=== PATIENT | female | born 1985 | race African-American/Black ===

== ENCOUNTER 2022-11-06 01:39 | Inpatient (IN) | payer OTHER, SELFPAY ==
[2022-11-06] VITALS (100 sets, daily range): BP systolic 86–148; BP diastolic 34–113; PULSE 35–261; RESP 16–20; TEMP 36.6–37.7; O2SAT 74–100; BMI 33.9
--- NOTE | 2022-11-06 02:19 | LDADM ---
This patient, Beatrice Patton, was admitted to Labor/Delivery/Recovery 107 on 11/06/22 at 01:39. Plans for labor, pain management and were discussed with patient. Patient/family oriented to hospital policies and general routines including ID bracelet, bed and alarms, visiting hours, pain management, procedures, bathroom and other care routines, personal items, smoking policy, room service/diet and guest tray routines, security routines, and visiting hours. Patient/Family are encouraged to report perceived risks to care and to ask questions if they do not understand what they are told or what they should do. See OBIX for further documentation.
[2022-11-06 02:27] LABS: Basophils Percent Auto 0.5 % (0.2-1.2); Eosinophils Absolute Auto 0.1 K/mm3 (0-0.3); Eosinophils Percent Auto 0.8 % (0-4.4); Hemoglobin 11.2 g/dL (12.0-15.0); Immature Granulocyte Absolute 0.03 K/mm3 (0.00-0.031); Immature Granulocyte Percent A 0.5 % (0-0.5); Lymphocytes Absolute Auto 2.31 K/mm3 (0.9-3.2); Lymphocytes Percent Auto 36.4 % (18.3-44.2); Mean Corpuscular HGB Conc 31.1 g/dl (32-36); Mean Corpuscular Hemoglobin 25.1 pg (26-34); Mean Corpuscular Volume 80.5 fl (80-100); Mean Platelet Volume 10.3 fl (7.4-10.4); Monocytes Absolute Auto 0.7 K/mm3 (0.1-0.6); Monocytes Percent Auto 10.2 % (2.6-8.5); Neutrophils Absolute Auto 3.3 K/mm3 (1.3-6.7); Neutrophils Percent Auto 51.6 % (45.5-73.1); Platelet Count Result 232 k/mm3 (150-375); Red Blood Count 4.47 M/mm3 (4.2-5.4); Red Cell Distribution Width 13.9 % (11.5-14.5); White Blood Count 6.4 K/mm3 (4.5-10.0)
[2022-11-06] MEDS: AMPICILLIN 2 GM/NS 100 ML 2 GM/100 ML BAG IVPB (02:33)
[2022-11-06] MEDS: LACTATED RINGERS 1,000 ML 125 ML IV CONT ×2 (02:33→07:04)
[2022-11-06] MEDS: AMPICILLIN 1 GM/NS 50 ML 1 GM/50 ML BAG IVPB ×2 (06:19→11:26)
--- NOTE | 2022-11-06 06:30 | WPDANESEPP ---
Anes - Eval Pre Procedure Procedure: labor epidural Date/Time: 11/06/22 06:30 Pre Op Diagnosis: SROM Patient Data Age: 37 Gender: F Height: 1.65 m Weight: 92.5 kg Last Vital Signs Temp 36.6 C 11/06/22 05:00 Pulse 108 H 11/06/22 03:01 Resp 20 11/06/22 05:00 BP 118/85 11/06/22 03:01 O2 Del Method Room Air 11/06/22 02:17 Allergies Allergy/AdvReac Type Severity Reaction Status Date / Time No Known Allergies Allergy Mild Verified 09/19/09 20:22 Home Medications Medication Instructions Recorded Confirmed Type aspirin 81 mg tablet 81 mg PO DAILY 11/04/22 11/06/22 History prenat.vits,sherri,jvh-mzgk-nlwcu 1 tablet PO DAILY 11/04/22 11/06/22 History Laboratory Tests 11/06/22 11/06/22 11/06/22 02:22 02:22 02:22 WBC 6.4 K/mm3 K/mm3 (4.5-10.0) RBC 4.47 M/mm3 M/mm3 (4.2-5.4) Hgb 11.2 g/dL L g/dL (12.0-15.0) Hct 36.0 % L % (37.0-47.0) MCV 80.5 fl fl (80-100) MCH 25.1 pg L pg (26-34) MCHC 31.1 g/dl L g/dl (32-36) RDW 13.9 % % (11.5-14.5) Plt Count 232 k/mm3 k/mm3 (150-375) MPV 10.3 fl fl (7.4-10.4) Immature Gran % (Auto) 0.5 % % (0-0.5) Neut % (Auto) 51.6 % % (45.5-73.1) Lymph % (Auto) 36.4 % % (18.3-44.2) Nolan % (Auto) 10.2 % H % (2.6-8.5) Eos % (Auto) 0.8 % % (0-4.4) Baso % (Auto) 0.5 % % (0.2-1.2) Lymph # (Auto) 2.31 K/mm3 K/mm3 (0.9-3.2) Nolan # (Auto) 0.7 K/mm3 H K/mm3 (0.1-0.6) Eos # (Auto) 0.1 K/mm3 K/mm3 (0-0.3) Baso # (Auto) 0.0 K/mm3 K/mm3 (0.0-0.1) Abs Immat Gran (auto) 0.03 K/mm3 K/mm3 (0.00-0.031) Absolute Neuts (auto) 3.3 K/mm3 K/mm3 (1.3-6.7) Absolute Nucleated RBC 0.0 K/mm3 K/mm3 (0.0-0.012) Nucleated RBC % 0.0 % % (0.0-0.2) RPR Pending HIV 1&2 Ab/P24 Ag 4thGn Blood Type O Positive Antibody Screen Negative 11/06/22 05:39 WBC RBC Hgb Hct MCV MCH MCHC RDW Plt Count MPV Immature Gran % (Auto) Neut % (Auto) Lymph % (Auto) Nolan % (Auto) Eos % (Auto) Baso % (Auto) Lymph # (Auto) Nolan # (Auto) Eos # (Auto) Baso # (Auto) Abs Immat Gran (auto) Absolute Neuts (auto) Absolute Nucleated RBC Nucleated RBC % RPR HIV 1&2 Ab/P24 Ag 4thGn Pending Blood Type Antibody Screen Patient hx anesthesia problems: none Family hx anesthesia problems: none Results Review: All pre-operative results and documents have been reviewed as part of the pre-operative evaluation. [facility] Past Medical History Medical History (Updated 11/06/22 @ 06:31 by Jolanta Gonzalez CRNA) Anxiety Social History Social History Smoking status: Never smoker Substance use: never Last use: unsure Lack of Transportation: No Lack of Food: Never True Current Housing: I Have Housing Concerned About Future Housing: No Difficulty Paying Gas/Electric Bills: No Difficulty Paying for Meds: No Currently Unemployed: No Education: High School Diploma/GED Difficulty w/ Childcare or Family Care: No Spiritual care concerns: No Exam Day of Procedure 11/06/22 06:30 Patient weight: obese Heart: regular rate and rhythm Lungs: clear to auscultation Airway: Mallampati scale Neurological: alert and oriented
[2022-11-06 06:48] LABS: HIV 1/2 Ab P24 Ag Result Negative (Negative)
--- NOTE | 2022-11-06 08:23 | WPDHPUPDATE1 ---
History and Physical Update Update Date/Time: 11/06/22 08:23 37-year-old multiparous female at term who presented in labor. She has advanced cervical dilation, reassuring heart tones, epidural, expectant management to continue. History and Physical has been reviewed, including an updated exam of the patient. There are NO changes in the patient's condition. Risks, benefits, and alternatives have been discussed and questions answered. Patient agrees to proceed with procedure.
[2022-11-06] MEDS: OXYTOCIN 30 UNITS/NS 500 ML 30 UNITS/500 ML BAG IV CONT (10:25)
[2022-11-06 13:13] LABS: Amphetamine Screen Urine Negative (Negative); Barbiturate Screen Urine Negative (Negative); Benzodiazepines Screen Urine Negative (Negative); Cannabinoid Screen Urine Positive (Negative); Cocaine Screen Urine Negative (Negative); Methadone Screen Urine Negative (Negative); Opiate Screen Urine Negative (Negative); Phencyclidine Screen Urine Negative (Negative)
[2022-11-06] MEDS: WITCH HAZEL 40 PADS 1 PAD TOPICAL (15:47)
--- NOTE | 2022-11-06 16:42 | OBPPTRN ---
1602-Patient transferred to post room #291 via wheelchair. Support person present. Oriented to unit, room, information board, rooming in, admission packet and security measures. Patient verbalizes understanding.
[2022-11-06] MEDS: IBUPROFEN 600 MG TABLET PO (18:53)
[2022-11-06] MEDS: HYDROcodone/acetaminophen (*CRX) 5-325 MG TABLET 1 TAB PO (20:07)
[2022-11-07 04:30] VITALS: BP 110/68; PULSE 72; RESP 16; TEMP 36.4; O2SAT 99
[2022-11-07] MEDS: HYDROcodone/acetaminophen (*CRX) 5-325 MG TABLET 1 TAB PO ×4 (04:44→22:20)
[2022-11-07 05:17] LABS: Hematocrit 31.4 % (37.0-47.0); Hemoglobin 9.8 g/dL (12.0-15.0)
[2022-11-07 07:30] VITALS: BP 106/66; PULSE 70; RESP 16; RESP 18; TEMP 36.6; O2SAT 99
--- NOTE | 2022-11-07 08:31 | PM.OBPNVD ---
OB - PN: Subj Subjective Date/time seen: 11/07/22 08:31 Patient comments: no complaints, pain well controlled, incisional pain, tolerating diet and flatus present OB - PN: Obj Data Labs 11/07/22 04:34 Labs: Laboratory Results - last 24 hr 11/06/22 11/07/22 11:57 04:34 Hgb 9.8 L Hct 31.4 L Urine Opiates Screen Negative Urine Methadone Screen Negative Ur Barbiturates Screen Negative Ur Phencyclidine Scrn Negative Ur Amphetamine Screen Negative U Benzodiazepines Scrn Negative Urine Cocaine Screen Negative U Cannabinoids Screen Positive A OB - PN A/P Plan day: 1 Plan: routine care Comments: No problems, routine care Time Spent With Patient Time: Total time spent is greater than 50% in coordination of care (as documented) at patient's floor/unit and/or counseling patient: Exam Const: General: comfortable, no acute distress and alert Resp: Effort & Inspection: normal respiratory effort Auscultation: no crackles, no rales and no rhonchi Cardio: Rate: regular rate Heart sounds: no click, no murmurs and no rubs GI: Inspection: non-distended GI Palp: No Tenderness to palpation present (GI) Auscultation: normal bowel sounds Other: Incision - CDI Extrem: General: normal to inspection, no pedal edema and no calf tenderness
--- NOTE | 2022-11-07 08:40 | WPDANLDPN2 ---
Anes-Prog Note L&D Date/Time: 11/07/22 08:40 Neuro status: Neuro function grossly intact. Cardiovascular status: normal Respiratory status: normal Airway patency: baseline Mental status: baseline Post-Op hydration status: normal Vital Signs: Last Vital Signs Temp 36.4 C L 11/07/22 04:30 Pulse 72 11/07/22 04:30 Resp 16 11/07/22 04:30 BP 110/68 11/07/22 04:30 Pulse Ox 99 11/07/22 04:30 O2 Del Method Room Air 11/06/22 16:30 Pain score (VAS): 2 I/O: Intake & Output 11/06/22 11/07/22 11/07/22 23:59 07:59 15:59 Intake Total 640 Output Total 200 Balance 440 Post-procedural complaints: none Patient feedback: Patient satisfied with anesthetic care.
[2022-11-07] MEDS: POLYSACCHARIDE IRON COMPLEX 150 MG CAPSULE PO ×2 (09:32→17:04)
[2022-11-07] MEDS: DOCUSATE SODIUM 100 MG CAPSULE PO ×2 (09:32→17:04)
[2022-11-07] MEDS: IBUPROFEN 600 MG TABLET PO ×2 (10:19→17:05)
[2022-11-07 19:10] VITALS: BP 129/73; PULSE 74; RESP 18; TEMP 36.6; O2SAT 99
[2022-11-08] MEDS: HYDROcodone/acetaminophen (*CRX) 5-325 MG TABLET 1 TAB PO (05:22)
[2022-11-08] MEDS: IBUPROFEN 600 MG TABLET PO (05:22)
--- NOTE | 2022-11-08 08:03 | PM.OBPNVD ---
OB - PN: Subj Subjective Date/time seen: 11/08/22 08:03 Patient comments: no complaints and pain well controlled baby status: doing well and bottle feeding well [place] feeding status: exclusively bottle feeding Narrative: ready for DC home. OB - PN: Obj Data Labs 11/07/22 04:34 OB - PN A/P Plan day: 2 Plan: routine care and discharge home Time Spent With Patient Time: Total time spent is greater than 50% in coordination of care (as documented) at patient's floor/unit and/or counseling patient: Time with patient: less than 15 minutes Exam Narrative: NAD abdomen soft, nontender, fundus firm below the umbilicus Extremities nontender, 1+ edema
--- NOTE | 2022-11-08 08:05 | P.DS_ITS ---
DS: Admitting Diagnosis Discharge Date 11/08/22 Admitting Diagnosis term labor DS: Discharge Diagnosis Discharge Diagnosis (1) , delivered: Code(s): O80 - Encounter for full-term uncomplicated delivery Status: Acute OB - DS: Summary Hospital Course Hospital Course: Beatrice was admitted for labor at term. She proceeded to have an uncomplicated vaginal delivery and course. She was discharged home on PPD 2. OB Procedures : Ultrasound OB Procedures Intrapartum: Spontaneous Vag Delivery OB Procedures: : None Peripartum Data Delivery Method: Natural Vaginal complications: none Status at Discharge Functional status at discharge: independent ambulation Time Spent with Patient Time attestation: Total time spent providing and/or coordinating discharge services: Exam Narrative: NAD abdomen soft, appropriately tender Ext non tender, 1+ edema Discharge Plan Discharge Attending physician on discharge: Elmira Farrar Discharging Clinician: Elmira Farrar Anticipated Discharge Date/Time: 11/08/22 08:04 Patient Disposition: Home, Self-Care Activity: pelvic rest Diet: regular Patient Instructions: Antibiotic Form Stand Alone Forms: General Discharge Information Follow-up/Referrals: Elmira Farrar MD [Physician] - 4 Weeks Discharge Medications: Continued #2 Tablet 1 tablet PO DAILY Discontinued Adult Low Dose Aspirin 81 mg Tablet 81 mg PO DAILY Date of admission: 11/06/22 01:39 Primary Care Provider: PHYSICIAN,TELEPHONE ORDER SUPERVISOR Admitting Provider: Elmira Farrar Attending physician on admission: Elmira Farrar Condition: Stable
[2022-11-08 08:12] LABS: Rapid Plasma Reagin Non-Reactive (NonReactive)
[2022-11-08 08:15] VITALS: BP 111/66; PULSE 63; RESP 16; TEMP 36.7; O2SAT 100
[2022-11-08] MEDS: POLYSACCHARIDE IRON COMPLEX 150 MG CAPSULE PO (08:44)
[2022-11-08] MEDS: DOCUSATE SODIUM 100 MG CAPSULE PO (08:44)
--- NOTE | 2022-11-08 09:09 | PC.NURSE ---
0630 Patient viewed the discharge video Mother & Baby Care, The First Two Weeks . Patient was given the opportunity and encouraged to ask questions. Patient verbalized understanding of information shared and has been given the mother/baby guide for home reference.
--- NOTE | 2022-11-08 20:52 | PM.OBPRVD ---
OB - Delivery Note Procedure Delivery date: 11/06/22 Procedure: Induction method: None Delivery augmentation: Pitocin Route of delivery: Episiotomy description: None Anesthesia type: Epidural Disposition: Floor Baby Date of : 11/08/22 Weeks of gestation at delivery: 39 score one minute: 8 score five minutes: 9
[2022-11-09 10:53] VITALS: BP 112/70; PULSE 69; RESP 16; TEMP 36.6; O2SAT 99
== END 2022-11-08 12:12 | disposition home or self-care (01) | DRG 560 ==
LOC: ANHLDR 04:47 → ANHOB2 16:04
PROVIDERS: Admitting Provider Obstetrics & Gynecology; Visit Provider Obstetrics & Gynecology
DX: O99.824 Streptococcus B carrier state complicating childbirth (principal); O63.1 Prolonged second stage (of labor); Z3A.38 38 weeks gestation of pregnancy; Z37.0 Single live birth
CPT/HCPCS: 36415; 80307; 84112; 85014; 85018; 85025; 86592; 86703; 86850; 86900; 86901; A9270; G0432; J0290; J2590; J2795; J7120